=== PATIENT | female | born 1965 | race African-American/Black ===

== ENCOUNTER 2017-01-02 10:53 | Day surgery (SDC) | payer OTHER ==
[~2017-01-02] VITALS: Ht 170.2 cm; Wt 99.7 kg
[~2017-01-02 10:53] MED LIST: ADVAIR 250/501 DISK IH; ADVIL200 M1 PO; ALBUTEROL SULF8.5 GM IH; ALEVE220 MG PO; AMLODIPINE BESYL5 MG PO; AMOXICILLIN500 MG PO; CEFTIN500 MG PO; CENTRUM ULTRA1 EAC1 PO; DECADRON4 MG PO; DEXAMETHASONE4 MG PO; GLUCOTROL XL2.5 MG PO; GLUCOTROL5 MG PO; HYDROCHLOROTH12.5 M3 PO; HYDROCHLOROTHIA25 MG PO; IBUPROFEN600 MG PO; INDOCIN25 MG PO; LEVAQUIN500 MG PO; LISINOPRIL10 MG PO; LISINOPRIL40 MG PO; LISINOPRIL5 MG PO; METFORMIN HCL500 MG PO; MOTION SICKNESS25 M4 PO; NORCO 5/3251 TABLET PO; NORVASC10 MG PO; NYAMYC60 GM TP; OXYCODONE-APAP1 EAC6 PO; PHENERGAN1.25 MG/ML PO; PLAVIX75 MG PO; PREDNISONE20 MG PO; PREDNISONE50 MG PO; RANITIDINE HCL150 MG PO; TORADOL10 MG PO; TRADJENTA5 MG PO; VENTOLIN HFA18 GM IH; VISTARIL25 MG PO; VITAMIN D5000 UNI1 PO; ZITHROMAX Z-PA250 MG PO; ZITHROMAX250 MG PO; ZOFRAN8 MG PO
[2017-01-02 12:56] LABS: POINT-OF-CARE METER ID UU14174212
== END 2017-01-02 14:00 | disposition home or self-care (01) ==
LOC: PAIN 10:53
PROVIDERS: Anesthesiology Pain Medicine
DX: M47.22 Other spondylosis with radiculopathy, cervical region (principal); F41.9 Anxiety disorder, unspecified; F17.200 Nicotine dependence, unspecified, uncomplicated; M12.88 Other specific arthropathies, not elsewhere classified, other specified site; M50.00 Cervical disc disorder with myelopathy, unspecified cervical region; M50.20 Other cervical disc displacement, unspecified cervical region; M25.512 Pain in left shoulder; I10 Essential (primary) hypertension; I25.10 Atherosclerotic heart disease of native coronary artery without angina pectoris; J45.909 Unspecified asthma, uncomplicated; E66.9 Obesity, unspecified; Z86.73 Personal history of transient ischemic attack (TIA), and cerebral infarction without residual deficits; Z88.5 Allergy status to narcotic agent; Z88.6 Allergy status to analgesic agent; Z88.8 Allergy status to other drugs, medicaments and biological substances
CPT/HCPCS: 82948; J1030; J2250; J3010; S0020

== ENCOUNTER → 2018-01-25 | Outpatient (CLI) | payer OTHER ==
[~2018-01-25] VITALS: Ht 170.2 cm; Wt 106.4 kg
[~2018-01-25] MED LIST changes: +CENTRUM SILVER1 EAC3 PO; +DOXAZOSIN MESYLA8 MG PO; +ERGOCALCIF50000 UNIT PO; +FERROUS SULFAT325 MG IV; +FLONASE16 G1 BOTH NARES; +GABAPENTIN300 MG PO; +LORATADINE10 M2 PO; +METHOCARBAMOL750 MG PO; +NAPROXEN500 MG PO; +ONGLYZA5 MG PO; +RANITIDINE HCL300 MG PO; +SYMBICORT60 INHALAT IH; +TIZANIDINE HCL4 MG PO
== END | disposition home or self-care (01) ==
LOC: AMB 07:57
PROVIDERS: Internal Medicine
DX: Z12.11 Encounter for screening for malignant neoplasm of colon (principal); D12.2 Benign neoplasm of ascending colon; D12.3 Benign neoplasm of transverse colon; D12.5 Benign neoplasm of sigmoid colon; K44.9 Diaphragmatic hernia without obstruction or gangrene; K57.30 Diverticulosis of large intestine without perforation or abscess without bleeding; K21.9 Gastro-esophageal reflux disease without esophagitis; D64.9 Anemia, unspecified; E11.22 Type 2 diabetes mellitus with diabetic chronic kidney disease; N18.3 Chronic kidney disease, stage 3 (moderate); J45.909 Unspecified asthma, uncomplicated; I25.10 Atherosclerotic heart disease of native coronary artery without angina pectoris; Z83.3 Family history of diabetes mellitus; Z79.84 Long term (current) use of oral hypoglycemic drugs; Z86.73 Personal history of transient ischemic attack (TIA), and cerebral infarction without residual deficits; F17.200 Nicotine dependence, unspecified, uncomplicated; Z82.49 Family history of ischemic heart disease and other diseases of the circulatory system; Z82.3 Family history of stroke; Z88.6 Allergy status to analgesic agent; Z88.8 Allergy status to other drugs, medicaments and biological substances
CPT/HCPCS: 82948; 88305